=== PATIENT | female | born 1970 | race Caucasian/White ===

== ENCOUNTER 2021-04-07 10:43 | Emergency (ER) | payer BC ==
[~2021-04-07] VITALS: Ht 162.6 cm; Wt 104.0 kg
--- NOTE | 2021-04-07 11:13 | PHYS DOC ---
Adult General Chief Complaint Chief Complaint: DIZZY/LIGHT HEADED HPI HPI Patient is a 51-year-old female presenting from urgent care upstairs for dizziness. This is been going on for 1 week but worsened past 24 hours without any known inciting event, trauma, ingestion, mechanism of injury, illness or r ecent travel. Nothing known makes better, turning head and change in position make worse. Patient states she has had an episode like this in the past that was vertigo in nature and occurred shortly after a URI, she cannot remember if her specific diagnosis was vertigo or leg bronchitis but resolved with supportive care practices and meclizine. Denies any recent fever. States she went to urgent care upstairs for evaluation and there was concern for stroke so she was transported down to our facility for evaluation. Review of Systems Review of Systems Fourteen body systems of review of systems have been reviewed. See HPI for pertinent positives and negative responses, other verdugo all other systems are negative, non-pertinent or non-contributory Physical Exam Physical Exam General: Appears well, non toxic, and comfortable Skin: Warm, dry. Normal for ethnicity. HEENT: Atraumatic. PERRLA. Moist mucous membranes. Neck: Trachea midline. Normal ROM. Respiratory: Normal WOB. CTAB w/o w/r/r. No tachypnea. Cardiovascular: Regular rate and rhythm. Normal peripheral perfusion. No edema. Abdomen: Soft. Non tender. No distension. Back: Normal ROM. Musculoskeletal: No swelling or deformity. Neuro: Alert and oriented x 4. MAEE. GCS 15. Normal FNF. Negative pronator drift. Normal heel to polanco. Normal Gilles. CN II-XII intact. Normal strength and sensation. Normal speech. Psych: Normal affect and mood. Current Patient Data Vital Signs Vital Signs Date Time Temp Pulse Resp B/P (MAP) Pulse Ox O2 Delivery O2 Flow Rate FiO2 04/07/21 12:46 98.4 87 16 140/82 (101) 94 Vital Signs Date Time Temp Pulse Resp B/P (MAP) Pulse Ox O2 Delivery O2 Flow Rate FiO2 04/07/21 12:46 98.4 87 16 140/82 (101) 94 Lab Results Laboratory Tests Test 04/07/21 11:30 04/07/21 11:32 04/07/21 12:00 White Blood Count 8.2 x10^3/uL Red Blood Count 4.94 x10^6/uL Hemoglobin 14.0 g/dL Hematocrit 42.6 % Mean Corpuscular Volume 86 fL Mean Corpuscular Hemoglobin 28 pg Mean Corpuscular Hemoglobin Concent 33 g/dL Red Cell Distribution Width 15.5 % Platelet Count 225 x10^3/uL Neutrophils (%) (Auto) 66 % Lymphocytes (%) (Auto) 26 % Monocytes (%) (Auto) 6 % Eosinophils (%) (Auto) 2 % Basophils (%) (Auto) 0 % Neutrophils # (Auto) 5.4 x10^3uL Lymphocytes # (Auto) 2.1 x10^3/uL Monocytes # (Auto) 0.5 x10^3/uL Eosinophils # (Auto) 0.2 x10^3/uL Basophils # (Auto) 0.0 x10^3/uL Sodium Level 140 mmol/L Potassium Level 4.3 mmol/L Chloride Level 105 mmol/L Carbon Dioxide Level 25 mmol/L Anion Gap 10 Blood Urea Nitrogen 12 mg/dL Creatinine 0.6 mg/dL Estimated GFR (Cockcroft-Gault) 104.6 BUN/Creatinine Ratio 20 Glucose Level 101 mg/dL Calcium Level 8.7 mg/dL Total Bilirubin 0.5 mg/dL Aspartate Amino Transf (AST/SGOT) 11 U/L Alanine Aminotransferase (ALT/SGPT) 25 U/L Alkaline Phosphatase 130 U/L Total Protein 6.6 g/dL Albumin 3.4 g/dL Albumin/Globulin Ratio 1.1 Glucose (Fingerstick) 94 mg/dL Troponin I High Sensitivity 5 ng/L Current Medications Medications (Trade) Dose Ordered Sig/Katrina Route PRN Reason Start Time Stop Time Status Last Admin Dose Admin Meclizine HCl (Antivert) 25 mg 1X ONCE PO 04/07/21 11:15 04/07/21 11:19 DC 04/07/21 12:44 EKG EKG EKG ordered and interpreted by myself 11 923 hours as sinus rhythm at 9084 bpm, prolonged QRS at 122 otherwise unremarkable intervals, no axis deviation, T wave inversion noted in lead I and aVL, no STEMI Radiology/Procedures Radiology/Procedures AP chest. HISTORY: Dizziness AP view was taken of the chest. Lungs are clear. Heart is normal in size. There is no effusion. IMPRESSION: 1. No acute infiltrates. Electronically signed by: Ruiz Smith MD (04/07/2021 12:04 PM) [facility] ///////////////////// CT HEAD INDICATION: Reason: dizziness X1 WEEK / Spl. Instructions: / History: COMPARISON: None Available. Exposure: One or more of the following individualized dose reduction techniques were utilized for this examination: 1. Automated exposure control 2. Adjustment of the mA and/or kV according to patient size 3. Use of iterative reconstruction technique TECHNIQUE: 5 mm contiguous axial images were obtained from the skull base to the vertex in both bone and soft tissue algorithm. FINDINGS: No abnormal attenuation within the brain parenchyma. No evidence of acute intracranial hemorrhage. No extra-axial fluid collections. No mass effect or midline shift. Ventricular size is appropriate. Basal cisterns are patent. No fractures identified.Grover-white differentiation is preserved.Globes and orbits are within normal limits. Paranasal sinuses and mastoid air cells are clear. IMPRESSION: Unremarkable CT examination of the head without contrast, as above. Specifically, no evidence of an acute intracranial abnormality. Electronically signed by: Trenton Godfrey MD (04/07/2021 11:52 AM) [id number] Heart Score C/O Chest Pain: No HEART Score for Chest Pain: HEART Score for Chest Pain Response (Comments) Value History Slighlty/Non-Suspicious 0 ECG Nonspecific Repolarizatio 1 Age >45 - < 65 1 Risk Factors No Risk Factors 0 Troponin < Normal Limit 0 Total 2 Risk Factors: Risk Factors: DM, Current or recent (<one month) smoker, HTN, HLP, family history of CAD, obesity. Risk Scores: Risk Factors: DM, Current or recent (<one month) smoker, HTN, HLP, family history of CAD, obesity. Course & Med Decision Making Course & Med Decision Making ABCs unremarkable NIH stroke scale 0. HPI, physical examination and comprehensive ER work-up nonconcerning for any emergent or surgical issues Patient with history of vertigo stating presenting symptoms feel like prior episodes. Meclizine improved symptoms. Gait reassessed and unremarkable Joint decision between myself and patient to discharge home with PCP follow-up. Given episodes of vertigo ENT consultation was advised Strict return precautions discussed with good understanding by patient, all questions and concerns addressed prior to ER departure Dagmar Disclaimer Dragon Disclaimer This electronic medical record was generated, in whole or in part, using a voice recognition dictation system. NIH Stroke Scale: NIH Stroke Scale Response (Comments) Value Level of Consciousness: 0 Alert/Responsive 0 LOC Questions: 0 Answers both correctly 0 LOC Commands: 0 Performs both tasks 0 Best Gaze: 0 Normal 0 Visual: 0 No visual loss 0 Facial Palsy: 0 Normal, symmetrical 0 Motor - Left Arm 0 No drift 0 Motor - Right Arm 0 No drift 0 Motor - Left Leg 0 No drift 0 Motor: Right Leg 0 No drift 0 Limb Ataxia: 0 Absent 0 Sensory: 0 No loss 0 Best Language: 0 Normal 0 Dysathria: 0 Normal 0 Extinction and Inattention: 0 Normal 0 Total 0 Departure Departure: Impression: Primary Impression: Dizziness Disposition: HOME / SELF CARE / HOMELESS Condition: STABLE Referrals: MAGO BARAJAS (PCP) Patient Instructions: Dizziness Additional Instructions: As discussed prior to ER departure, your vitals, physical exam and comprehensive ER work-up were nonconcerning for any emergent or surgical issues. Your symptoms improved with meclizine. As disclosed, there is no obvious emergent findings on your evaluation today and you are most likely suffering from a likely self-limiting issue such as vertigo and/or late bronchitis. Please take prescribed meclizine which is an antinausea and antidizziness medication that should help improve your symptoms. Given your history of vertigo in the past, it is advise you contact your primary care physician in the morning to review ER visit today and need for ENT follow-up. If any concerning signs or symptoms present prior to outpatient follow-up please do not hesitate to come back for r epeat evaluation. It was a pleasure to take care of you and I wish you the best going forward Scripts Meclizine Hcl (VERTICALM) 25 Mg Tablet 25 MG PO QID for dizziness, #30 TAB Prov: TATIANA ALONSO DO 04/07/21 TATIANA ALONSO DO Apr 07, 2021 11:13
[2021-04-07] MEDS ORDERED: MECLIZINE 12.5 MG TABLET. PO ONE (11:15)
--- NOTE | 2021-04-07 11:25 | EKG ---
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
--- NOTE | 2021-04-07 11:55 | RAD ---
CT HEAD INDICATION: Reason: dizziness X1 WEEK / Spl. Instructions: / History: COMPARISON: None Available. Exposure: One or more of the following individualized dose reduction techniques were utilized for thi s examination: 1. Automated exposure control 2. Adjustment of the mA and/or kV according to patient size 3. Use of iterative reconstruction technique TECHNIQUE: 5 mm contiguous axial images were obtained from the skull base to the vertex in both bone and soft tissue algorithm. FINDINGS: No abnormal attenuation within the brain parenchyma. No evidence of acute intracranial hemorrhage. No extra-axial fluid collections. No mass effect or midline shift. Ventricular size is appropriate. Basal cisterns are patent. No fractures identified.Grover-white differentiation is preserved.Globes and orbits are within normal l imits. Paranasal sinuses and mastoid air cells are clear. IMPRESSION: Unremarkable CT examination of the head without contrast, as above. Specifically, no evidence of an acute intracranial abnormality. Electronically signed by: Trenton Godfrey MD (04/07/2021 11:52 AM) [id number]
[2021-04-07 12:00] LABS: BASO % 0 % (0-3); EOS # 0.2 x10^3/uL (0.0-0.7); EOS % 2 % (0-3); HEMATOCRIT 42.6 % (36.0-47.0); LYMPH # 2.1 x10^3/uL (1.0-4.8); LYMPH % 26 % (24-48); MEAN CORPUSCULAR HEMOGLOBIN 28 pg (25-35); MEAN CORPUSCULAR HGB CONC 33 g/dL (31-37); MEAN CORPUSCULAR VOLUME 86 fL (79-100); MONO # 0.5 x10^3/uL (0.0-1.1); MONO % 6 % (0-9); NEUT # 5.4 x10^3uL (1.8-7.7); NEUT % 66 % (31-73); PLATELET COUNT 225 x10^3/uL (140-400); RED BLOOD COUNT 4.94 x10^6/uL (3.50-5.40); RED CELL DISTRIBUTION WIDTH 15.5 % (11.5-14.5); WHITE BLOOD COUNT 8.2 x10^3/uL (4.0-11.0)
--- NOTE | 2021-04-07 12:07 | RAD ---
AP chest. HISTORY: Dizziness AP view was taken of the chest. Lungs are clear. Heart is normal in size. There is no effusion. IMPRESSION: 1. No acute infiltrates. Electronically signed by: Ruiz Smith MD (04/07/2021 12:04 PM) [facility]
[2021-04-07 12:09] LABS: CALCIUM 8.7 mg/dL (8.5-10.1); CREATININE 0.6 mg/dL (0.6-1.0); GFR 104.6; POTASSIUM 4.3 mmol/L (3.5-5.1)
[2021-04-07 12:14] LABS: ALBUMIN 3.4 g/dL (3.4-5.0); ALBUMIN/GLOBULIN RATIO 1.1 (1.0-1.7); TOTAL BILIRUBIN 0.5 mg/dL (0.2-1.0); TOTAL PROTEIN 6.6 g/dL (6.4-8.2)
[2021-04-07 12:46] VITALS: BP 140/82
[2021-04-07] MEDS ORDERED: [UNRECOGNIZED DRUG - CODE] PO (13:05)
== END 2021-04-07 12:59 | disposition home or self-care (01) ==
LOC: ER 10:43
DX: R42 Dizziness and giddiness (principal)
CPT/HCPCS: 36415; 70450; 71045; 80053; 82947; 84484; 85025; 93005; 99285